=== PATIENT | female | born 1985 | race African-American/Black ===

== ENCOUNTER 2020-07-17 11:30 | Outpatient (REF) | payer MEDICAID, SELFPAY ==
[2020-07-17 22:38] LABS: Anion Gap 7.5 mmol/L (3-11); BUN 11 mg/dL (7-18); CO2 28.5 mmol/L (21.0-32.0); CREATININE 1.05 mg/dL (0.55-1.02); Calcium 9.1 mg/dL (8.5-10.1); Calculated LDL 197 mg/dL (<100); Chloride 103 mmol/L (98-107); Cholesterol 275 mg/dL (<200); Estimated GFR 58.97 (mL/min/1.73m2); Glucose 57 mg/dL (74-106); HDL Cholesterol 61 mg/dL (40-60); Potassium 3.8 mmol/L (3.5-5.1); Sodium 139 mmol/L (136-145); TSH 0.54 uIU/mL (0.36-3.74); Triglyceride 85 mg/dL (<150)
== END 2020-07-17 11:50 ==
LOC: NCHCN 11:30
PROVIDERS: PCP Naturopath; Visit Provider Family Medicine
DX: R79.89 Other specified abnormal findings of blood chemistry (principal); Z83.3 Family history of diabetes mellitus; Z13.6 Encounter for screening for cardiovascular disorders; Z83.49 Family history of other endocrine, nutritional and metabolic diseases
CPT/HCPCS: 80048; 80061; 84443

== ENCOUNTER 2021-06-25 07:56 | Outpatient (REF) | payer MEDICAID, SELFPAY ==
[2021-06-27 10:50] LABS: Syphilis Serology (RPR) Negative (Negative)
[2021-06-27 14:24] LABS: HIV-1/2 Ag & Ab Screen Negative (Negative)
[2021-06-27 14:46] LABS: Chlamydia Result Negative (Negative); GC Result Negative (Negative)
[2021-06-28 10:06] LABS: HBs Antibody, Quant 225.8 mIU/mL (See Note); Hepatitis B Surface Ab Positive (See Note)
[2021-06-28 11:04] LABS: Hepatitis C Ab w Rflx HCV PCR Negative (Negative)
[2021-06-28 11:41] LABS: Hep A Total Ab w Rflx IgM Negative (Negative)
== END 2021-06-25 07:57 | disposition home or self-care (01) ==
LOC: NCHCN 07:56
PROVIDERS: PCP Naturopath; Visit Provider Nurse Practitioner Family
DX: Z11.4 Encounter for screening for human immunodeficiency virus [HIV] (principal); Z13.818 Encounter for screening for other digestive system disorders; Z11.3 Encounter for screening for infections with a predominantly sexual mode of transmission
CPT/HCPCS: 86706; 86709; 86803; 87389; 87491; 87591; 86592

== ENCOUNTER 2021-08-11 16:35 | Outpatient (REF) | payer MEDICAID, SELFPAY ==
--- NOTE | 2021-08-11 15:25 | PAPFT_PTH ---
PATIENT: Yary Adrian LOC: [facility] U#:[id number] AGE/SX: 36/F ROOM: RE08/11/[address]: Kimi Martínez : 1985 BED: DIS: 08/11/2021 SPEC #: [id number] RECD: 08/12/21 13:14 STATUS: [facility] REGayatri #: [id number] ROMMEL: 08/11/21 15:[address]: Kimi Martínez DEPT: [facility] Cytology RECD BY: Maria Del Rosario Velasquez ENTERED: 08/12/21 13:14 SP TYPE: PAPFT OTHR DR: Brit Xie Tissues: 1 - CX/ENDOCX FOR PAP SMEARS Procedures: PAP THIN PREP/[facility] Screening HPV DNA PROBE Comments: [id number]
== END 2021-08-11 16:36 | disposition home or self-care (01) ==
LOC: LBN 16:35
PROVIDERS: PCP Naturopath; Visit Provider Family Medicine
DX: Z12.4 Encounter for screening for malignant neoplasm of cervix (principal); Z11.51 Encounter for screening for human papillomavirus (HPV)
CPT/HCPCS: 88142; 87624

== ENCOUNTER 2021-11-25 15:28 | Outpatient (REF) | payer MEDICAID, SELFPAY ==
[2021-11-25 17:56] LABS: HCT 42.9 % (36.0-46.0); HGB 14.1 g/dL (11.2-15.7); MCH 31.8 pg (27.0-33.0); MCHC 32.9 % (32.0-36.0); MCV 96.6 fL (80-95); MPV 9.9 fL (8.0-11.0); Platelet Count 320 10^3/uL (130-400); RBC 4.44 10^6/uL (3.93-5.22); RDW 12.2 % (11.7-14.6); RDW-SD 43.6 fL
[2021-11-25 17:59] LABS: Anion Gap 9.9 mmol/L (3-11); BUN 12 mg/dL (7-18); CO2 27.1 mmol/L (21.0-32.0); CREATININE 0.9 mg/dL (0.55-1.02); Calcium 8.6 mg/dL (8.5-10.1); Calculated LDL 167 mg/dL (<100); Chloride 102 mmol/L (98-107); Cholesterol 240 mg/dL (<200); Glucose 82 mg/dL (74-106); HDL Cholesterol 59 mg/dL (40-60); Potassium 4.1 mmol/L (3.5-5.1); Sodium 139 mmol/L (136-145); Triglyceride 73 mg/dL (<150)
[2021-11-25 18:21] LABS: TSH (W/Ref FT4) 0.69 uIU/mL (0.36-3.74)
== END 2021-11-25 15:29 | disposition home or self-care (01) ==
LOC: NCHCN 15:28
PROVIDERS: PCP Naturopath; Visit Provider Family Medicine
DX: L65.9 Nonscarring hair loss, unspecified (principal); Z13.220 Encounter for screening for lipoid disorders
CPT/HCPCS: 80048; 80061; 85027; 84443

== ENCOUNTER 2024-11-08 21:51 | Outpatient (REF) | payer MEDICAID, SELFPAY ==
[2024-11-08 21:14] LABS: Abs Immature Grans 0.02 10^3/uL (0.0-0.06); Absolute Basophil Count 0.06 10^3/uL (0.0-0.2); Absolute Eosinophil Count 0.42 10^3/uL (0.0-0.7); Absolute Lymphocyte Count 2.05 10^3/uL (1.2-3.4); Absolute Monocyte Count 0.84 10^3/uL (0.1-0.8); Absolute Neutrophil Count 5.16 10^3/uL (1.2-6.7); Basophils % 0.7 %; Eosinophils % 4.9 %; HGB 14.7 g/dL (11.2-15.7); Immature Grans % 0.2 %; MCH 32.3 pg (27.0-33.0); MCV 92 fL (80-95); MPV 9.1 fL (8.0-11.0); Monocytes % 9.8 %; Neutrophils % 60.4 %; Platelet Count 294 10^3/uL (130-400); RBC 4.55 10^6/uL (3.93-5.22); RDW 11.9 % (11.7-14.6); RDW-SD 40.6 fL; WBC 8.55 10^3/uL (4.4-10.8)
[2024-11-08 21:32] LABS: ESR 8 mm/hr (0-20)
[2024-11-08 21:57] LABS: Hemoglobin A1C 5.2 % (<5.7)
[2024-11-08 22:11] LABS: TSH (W/Ref FT4) 0.74 uIU/mL (0.36-3.74)
[2024-11-08 22:14] LABS: C-Reactive Protein < 0.50 mg/dL (<or=0.5)
== END 2024-11-08 21:52 | disposition home or self-care (01) ==
LOC: NCHCN 21:51
PROVIDERS: PCP Naturopath; Visit Provider Family Medicine
DX: R53.83 Other fatigue (principal); Z13.1 Encounter for screening for diabetes mellitus
CPT/HCPCS: 85652; 83036; 84443; 85025; 86140